=== PATIENT | male | born 1965 | race Caucasian/White ===

== ENCOUNTER 2019-04-12 03:19 | Emergency (ER) | payer OTHER ==
[~2019-04-12] VITALS: Ht 180.3 cm; Wt 80.0 kg
[2019-04-12 03:23] VITALS: Ht 180.3 cm; Wt 80.0 kg
--- NOTE | 2019-04-12 03:58 | ERD ---
ER Documentation Chief Complaint Chief Complaint R881. FROM [facility]. HYPOTENSIVE WHILE SLEEPING. HPI 53-year-old man brought [facility] by EMS [facility] for anemia and hypotension while he was sleeping. Patient states since November of this year he developed edema and abdominal swelling. He states for the last 2 days he has had blood per rectum but the denies melena. He has had no fevers or chills, no vomiting or diarrhea, no complaints of chest pain or shortness of breath. Patient was transported here by EMS without further complications ROS All systems reviewed and are negative except as per history of present illness. Allergies Allergies: Coded Allergies: No Known Allergy (Unverified , 04/12/19) PMhx/Soc Anemia, right upper extremity PICC line, BPH, CAD, hyperlipidemia, sacral decubitus ulcers, malnutrition, diabetes mellitus, pancreatitis, history of ascites, patient denies alcoholism or cirrhosis, functional quadriplegia Hx Respiratory Disorders: Yes (arf with hypoxia, ) Hx Cardiac Disorders: Yes (anemia, hyperlipidemia, ) Hx Psychiatric Problems: No Hx Miscellaneous Medical Probl: Yes (malignant neoplasm ) Hx Alcohol Use: No Hx Substance Use: No Hx Tobacco Use: No Smoking Status: Never smoker FmHx Family History: No diabetes Physical Exam Vitals Vital Signs Date Temp Pulse Resp B/P (MAP) Pulse Ox O2 O2 Flow FiO2 Time Delivery Rate 04/12/19 97.0 100 18 98/65 (76) 98 Nasal 03:25 Cannula 04/12/19 97.0 96 18 96/61 (73) 92 03:23 Physical Exam GENERAL: Appears older than stated age, emaciated, appears dehydrated, afebrile HEENT: Dry mucous membranes, pale conjunctive a, no cervical spine deformity or tenderness NEURO: Alert and oriented 3, cranial nerves II through XII intact bilaterally, pupils equal round reactive to light, no focal deficits or facial asymmetry CARDIAC: Regular rate and rhythm, no murmurs rubs or gallops LUNGS: Clear bilaterally no wheezing crackles or stridor ABDOMEN: Protuberant soft abdomen, evidence of ascites, nontender SKIN: Warm and dry to touch, superficial ecchymoses to the extremities, no hematomas or lacerations. Sacral, buttock skin examination deferred EXTREMITIES: 3+ pitting edema in the lower extremities bilaterally, calves symmetrical Result Diagram: 04/12/1934604/12/19 034 Results 24 hrs Laboratory Tests Test 04/12/19 03:47 White Blood Count 5.8 10^3/ul Red Blood Count 2.26 10^6/ul Hemoglobin 5.9 g/dl Hematocrit 18.7 % Mean Corpuscular Volume 82.7 fl Mean Corpuscular Hemoglobin 26.1 pg Mean Corpuscular Hemoglobin Concent 31.6 g/dl Red Cell Distribution Width 23.9 % Platelet Count 79 10^3/UL Mean Platelet Volume fl Immature Granulocytes % 0.500 % Neutrophils % 69.8 % Lymphocytes % 22.1 % Monocytes % 7.4 % Eosinophils % 0.0 % Basophils % 0.2 % Nucleated Red Blood Cells % 0.0 /100WBC Immature Granulocytes # 0.030 10^3/ul Neutrophils # 4.1 10^3/ul Lymphocytes # 1.3 10^3/ul Monocytes # 0.4 10^3/ul Eosinophils # 0.0 10^3/ul Basophils # 0.0 10^3/ul Nucleated Red Blood Cells # 0.0 10^3/ul Prothrombin Time 15.4 Sec Prothrombin Time Ratio 1.2 INR International Normalized Ratio 1.21 Activated Partial Thromboplast Time 37.7 Sec Sodium Level 137 mmol/L Potassium Level 3.5 mmol/L Chloride Level 99 mmol/L Carbon Dioxide Level 33 mmol/L Anion Gap 5 Blood Urea Nitrogen 24 mg/dl Creatinine 1.12 mg/dl Est Glomerular Filtrat Rate mL/min > 60 mL/min Glucose Level 56 mg/dl Calcium Level 7.6 mg/dl Total Bilirubin 0.4 mg/dl Direct Bilirubin 0.00 mg/dl Indirect Bilirubin 0.4 mg/dl Aspartate Amino Transf (AST/SGOT) 14 IU/L Alanine Aminotransferase (ALT/SGPT) 25 IU/L Alkaline Phosphatase 86 IU/L Troponin I < 0.012 ng/ml B-Type Natriuretic Peptide 1570 PG/ML Total Protein 5.5 g/dl Albumin 2.4 g/dl Globulin 3.10 g/dl Albumin/Globulin Ratio 0.77 Lipase 134 U/L Current Medications Medications Dose Sig/Andrew Start Time Status Last (Trade) Ordered Route PRN Stop Time Admin Dose Reason Admin Dextrose 50 ml NOW STAT 04/12/19 UNV (D50w IV 04:56 Syringe) 04/12/19 04:57 Procedures/MDM IV line was established patient was placed on air sampling and monitoring rhythm strip revealed a sinus rhythm at about 90 bpm with upright P and T waves. Patient was afebrile EKG performed, read by me revealed a normal sinus rhythm at 93 bpm, normal axis, narrow QRS complex, no concerning ST elevations or depressions noted One AP view of the chest performed, read by me reveals no acute infiltrates, normal mediastinum, sharp costophrenic and cardiac borders, no air under the diaphragm. Otherwise unremarkable chest x-ray. I administered 500 cc normal saline IV CBC reveals anemia with a hemoglobin of 5.9, electrolytes revealed dehydration and low glucose of 56, liver function tests are unremarkable, troponin was negative I ordered dextrose 25 g IV and transfusion 2 units PRBC IV over 2 [address]. I spoke to [facility] physician who recommended critical care transport, [place] authorization #[id number] Departure Diagnosis: Primary Impression: Hypotension Hypotension type: unspecified hypotension type Qualified Codes: I95.9 - Hypotension, unspecified Additional Impressions: Symptomatic anemia Ascites Ascites type: other type Qualified Codes: R18.8 - Other ascites Protein calorie malnutrition Protein-calorie malnutrition severity: moderate Qualified Codes: E44.0 - Moderate protein-calorie malnutrition Hypoglycemia Condition: Fair HAILY RUTH MD Apr 12, 2019 03:58
[2019-04-12] MEDS ORDERED: DEXTROSE 50% 50 ML SYRINGE IV STA (04:56)
[2019-04-12 07:23] VITALS: BP 114/81; PULSE 92; RESP 17
== END 2019-04-12 08:13 | disposition short-term general hospital (02) ==
LOC: E/R 03:19
DX: I95.9 Hypotension, unspecified (principal); E11.649 Type 2 diabetes mellitus with hypoglycemia without coma; E44.0 Moderate protein-calorie malnutrition; R18.8 Other ascites; D64.9 Anemia, unspecified; I25.10 Atherosclerotic heart disease of native coronary artery without angina pectoris; R06.02 Shortness of breath
CPT/HCPCS: 36415; 36430; 71045; 80053; 83690; 83880; 84484; 85025; 85610; 85730; 86850; 86900; 86901; 86920; 93005; 96374; 99285; P9016